=== PATIENT | female | born 1985 ===

== ENCOUNTER 2022-10-13 20:50 | Emergency (ER) | payer BC ==
[~2022-10-13] VITALS: Ht 162.6 cm; Wt 101.2 kg
[2022-10-13 22:20] VITALS: BP 145/89; TEMP 97.5; O2SAT 98
[2022-10-14] MEDS ORDERED: METH4TAB3 PO (19:49)
== END 2022-10-13 22:21 | disposition home or self-care (01) ==
LOC: ER 20:50
DX: J06.9 Acute upper respiratory infection, unspecified (principal); J01.90 Acute sinusitis, unspecified; Z88.8 Allergy status to other drugs, medicaments and biological substances; Z88.2 Allergy status to sulfonamides; Z91.041 Radiographic dye allergy status; Z79.899 Other long term (current) drug therapy; Z20.822 Contact with and (suspected) exposure to COVID-19
CPT/HCPCS: A4663